=== PATIENT | female | born 1985 | race African-American/Black ===

== ENCOUNTER 2017-04-12 14:13 | Emergency (ER) | payer BC ==
[2017-04-12 14:18] VITALS: BP 149/91
[2017-04-12] MEDS ORDERED: IBUPROFEN 800 MG TABLET PO ONE (14:48)
--- NOTE | 2017-04-12 14:53 | ER Document Report ---
ED Flu Like - General Chief Complaint: Flu Symptoms Stated Complaint: BODY ACHES Time Seen by Provider: 04/12/17 14:47 Notes: Patient is a 32-year-old female presented emergency department complaining of body aches, headache mild sore throat runny nose. She states everything started last evening. She is taking DayQuil this morning. She denies any vision changes, chest pain, shortness of breath, difficulty breathing, difficulty swallowing. States she did not receive a flu vaccine this year. TRAVEL OUTSIDE OF THE [place] IN LAST 30 DAYS: No - Related Data Allergies/Adverse Reactions: No Known Allergies Allergy (Verified 04/12/17 14:16) Past Medical History - Social History Smoking Status: Never Smoker Chew tobacco use (# tins/day): No Frequency of alcohol use: None Drug Abuse: None Family History: Reviewed & Not Pertinent - Past Medical History Cardiac Medical History: Reports: Hx Hypertension Endocrine Medical History: Reports: Hx Diabetes Mellitus Type 2 Renal/ Medical History: Denies: Hx Peritoneal Dialysis Surgical Hx: Negative - Immunizations Hx Diphtheria, Pertussis, Tetanus Vaccination: No Review of Systems - Review of Systems Constitutional: See HPI EENT: See HPI Cardiovascular: No symptoms reported Respiratory: No symptoms reported Gastrointestinal: No symptoms reported -: Yes All other systems reviewed and negative Physical Exam - Vital signs Vitals: Temp Pulse Resp BP Pulse Ox 101.3 F H 86 20 149/91 H 97 04/12/17 14:17 04/12/17 14:17 04/12/17 14:17 04/12/17 14:17 04/12/17 14:17 - Notes Notes: PHYSICAL EXAM GENERAL: Alert, interacts well. HEAD: Normocephalic, atraumatic. EYES: Pupils equal, round, and reactive to light. Extraocular movements intact. ENT: Oral mucosa moist, tongue midline. Uvula midline. Airway patent. No evidence of tonsillar enlargement, peritonsillar abscess, retropharyngeal abscess. NECK: Full range of motion. Supple. Trachea midline. LUNGS: Clear to auscultation bilaterally, no wheezes, rales, or rhonchi. No respiratory distress. HEART: Regular rate and rhythm. No murmurs, gallops, or rubs. ABDOMEN: Soft, nondistended, nontender. No guarding, rebound, or rigidity.. Bowel sounds present in all 4 quadrants. EXTREMITIES: Moves all 4 extremities spontaneously. No edema, radial and dorsalis pedis pulses 2/4 bilaterally. No cyanosis. NEUROLOGICAL: Alert and oriented x4. Normal speech. PSYCH: Normal affect, normal mood. SKIN: Warm, dry, normal turgor. No rashes or lesions noted. Course - Re-evaluation Re-evalutation: 04/12/17 14:52 Patient is a 32-year-old female is hemodynamically stable, no acute distress with a temperature of 101.3. Offered patient Motrin which she accepted will swab for strep and influenza 04/12/17 15:59 Patient results came back negative for strep and flu. Patient educated on symptomatic management of her symptoms with [id number] medications, fluid and rest. Patient agrees with plan. Discussed strict return precautions patient agrees with plan. - Vital Signs Vital signs: Temp Pulse Resp BP Pulse Ox 101.1 F H 86 20 149/91 H 97 04/12/17 14:48 04/12/17 14:17 04/12/17 14:17 04/12/17 14:17 04/12/17 14:17 Discharge - Discharge Clinical Impression: Body aches Condition: Good Disposition: HOME, SELF-CARE Instructions: Acetaminophen, Use of [id number] Ibuprofen ([facility]), Viral Syndrome ([facility]) Additional Instructions: Be sure to be drinking plenty of fluids to stay hydrated please return to the emergency department with any fever of 104 not responding to Tylenol or Motrin, nausea, vomiting Forms: Return to Work
== END 2017-04-12 16:06 | disposition home or self-care (01) ==
LOC: ER 14:13
DX: M79.1 Myalgia (principal)
CPT/HCPCS: 87070; 87804; 87880; 99283

== ENCOUNTER 2017-08-29 23:02 | Emergency (ER) | payer BC ==
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
[2017-08-30] MEDS ORDERED: KETOROLAC TROMETHAMINE INJ/PF 30 MG/1 ML SDV IM ONE (00:21)
--- NOTE | 2017-08-30 01:00 | RADIOLOGY REPORT (SQ) ---
EXAM DESCRIPTION: CHEST SINGLE VIEW CLINICAL HISTORY: chest pain COMPARISON: 05/03/2016 FINDINGS: Single frontal view of the chest. The cardiomediastinal silhouette has normal size and contour. No consolidation, pneumothorax, or pleural effusion. No displaced rib fractures identified. Upper abdominal soft tissues are unremarkable. IMPRESSION: 1. No acute pulmonary process identified.
[2017-08-30 01:19] LABS: HEMATOCRIT 25.4 % (36.0-47.0); MEAN CORPUSCULAR HEMOGLOBIN 16.3 pg (27.0-33.4); MEAN CORPUSCULAR HGB CONC 29.1 g/dL (32.0-36.0); PLATELET COUNT 372 10^3/uL (150-450); RED BLOOD COUNT 4.52 10^6/uL (3.72-5.28); RED CELL DISTRIBUTION WIDTH 20.4 % (11.5-14.0); WHITE BLOOD COUNT 9.5 10^3/uL (4.0-10.5)
[2017-08-30 01:25] LABS: MEAN CORPUSCULAR VOLUME 56 fl (80-97)
[2017-08-30 01:33] LABS: ANION GAP 11 (5-19); BLOOD UREA NITROGEN 15 mg/dL (7-20); CALCIUM 9.3 mg/dL (8.4-10.2); CARBON DIOXIDE 23 mmol/L (22-30); CHLORIDE 106 mmol/L (98-107); GLUCOSE 84 mg/dL (75-110); POTASSIUM 4.1 mmol/L (3.6-5.0); SODIUM 140.2 mmol/L (137-145)
[2017-08-30 01:36] LABS: ABSOLUTE LYMPHOCYTES# (MANUAL) 2.7 10^3/uL (0.5-4.7); ABSOLUTE MONOCYTES # (MANUAL) 0.7 10^3/uL (0.1-1.4); ABSOLUTE NEUTROPHILS# (MANUAL) 6.1 10^3/uL (1.7-8.2); BASOPHILS % (MANUAL) 0 % (0-2); EOSINOPHILS % (MANUAL) 1 % (0-6); LYMPHOCYTES % (MANUAL) 26 % (13-45); MONOCYTES % (MANUAL) 7 % (3-13); SEGMENTED NEUTROPHILS % (MAN) 64 % (42-78); TOTAL CELLS COUNTED 100; TOXIC GRANULATION SLIGHT; TOXIC VACUOLATION PRESENT
[2017-08-30 01:38] LABS: HYPOCHROMASIA 4+
[2017-08-30 01:39] LABS: ACANTHOCYTES 1+; ANISOCYTOSIS 2+; OVALOCYTES 1+; PLATELET COMMENT ADEQUATE; POIKILOCYTOSIS 2+; STOMATOCYTES 1+
[2017-08-30 01:42] LABS: HEMOGLOBIN 7.4 g/dL (12.0-15.5)
[2017-08-30] MEDS ORDERED: NORMAL SALINE 250 ML IV PRN (01:57)
[2017-08-30 07:08] VITALS: BP 145/94
--- NOTE | 2017-08-30 09:00 | EKG REPORT ---
SEVERITY:- NORMAL ECG - SINUS RHYTHM : Confirmed by: Ad Jacobo MD 30-Aug-2017 08:59:34
== END 2017-08-30 07:11 | disposition home or self-care (01) ==
LOC: ER 23:02
DX: R07.9 Chest pain, unspecified (principal); D64.9 Anemia, unspecified; R05 Cough
CPT/HCPCS: 93005; 99285; 96372; 86900; 86901; 36415; 36430; 86850; 85025; 80048; 84484; 86920; 71045; 93010; P9016; J1885; J7050

== ENCOUNTER 2018-04-24 14:43 | Emergency (ER) | payer BC ==
--- NOTE | 2018-04-24 15:43 | ER Document Report ---
HPI - HPI Patient complains to provider of: cough, chest hurts with cough Onset: Other Onset/Duration: Persistent Severity: Severe Pain Level: 4 Context: She presents to the emergency department with complaints of cough chest hurts from coughing feeling like she is having a hard time breathing and weak. Patient first reports that she has had a cough for 2 days. After discussing with her reports she has had a cough for a while and has been evaluated by her primary care provider Dr. Mays, she was also instructed at that time that it was her allergies and is to take some allergy medicine. She reports this is not helping. Denies fever vomiting diarrhea. Reports she is coughing up mucus. Associated Symptoms: Productive cough Exacerbated by: Coughing Relieved by: Denies Similar symptoms previously: Yes Recently seen / treated by doctor: Yes - REPRODUCTIVE Reproductive: DENIES: : Past Medical History - General Information source: Patient - Social History Smoking Status: Unknown if Ever Smoked Cigarette use (# per day): No Frequency of alcohol use: Occasional Drug Abuse: None Occupation: [employer] Lives with: Friend Family History: Reviewed & Not Pertinent Patient has suicidal ideation: No Patient has homicidal ideation: No - Past Medical History Cardiac Medical History: Reports: Hx Hypertension Endocrine Medical History: Reports: Hx Diabetes Mellitus Type 2 Renal/ Medical History: Denies: Hx Peritoneal Dialysis Surgical Hx: Negative - Immunizations Hx Diphtheria, Pertussis, Tetanus Vaccination: No Vertical Provider Document - CONSTITUTIONAL Agree With Documented VS: Yes Exam Limitations: No Limitations General Appearance: WD/WN, No Apparent Distress - INFECTION CONTROL TRAVEL OUTSIDE OF THE [place] IN LAST 30 DAYS: No - HEENT HEENT: Atraumatic, Normocephalic. negative: Conjuctival Injection, Pharyngeal Exudate, Pharyngeal Erythema, Tympanic Membrane Red - NECK Neck: Normal Inspection, Supple. negative: Lymphadenopathy-Left, Lymphadenopathy-Right - RESPIRATORY Respiratory: Breath Sounds Normal, No Respiratory Distress - no cough noted during entire assessment and interview. negative: Rales, Rhonchi, Wheezing - CARDIOVASCULAR Cardiovascular: Regular Rate, Regular Rhythm - MUSCULOSKELETAL/EXTREMETIES Musculoskeletal/Extremeties: MAEW, FROM, Non-Tender - no c/o pain - NEURO Level of Consciousness: Awake, Alert, Appropriate - DERM Integumentary: Warm, Dry Course - Re-evaluation Re-evalutation: 04/24/18 15:47 O2 sat 97%. Patient is talking in clear voice no respiratory distress no shortness of breath noted. Patient walked from waiting room to the exam room without any problems. Chest x-ray negative for hernia. Patient will be prescribed Tessalon Perles to help her sleep for cough disturbance. She was also instructed on importance of pushing fluids and follow-up with her primary care within 1 week for recheck. Dictation of this chart was performed using voice recognition software; therefore, there may be some unintended grammatical errors. - Vital Signs Vital signs: Temp Pulse Resp BP Pulse Ox 98.4 F 67 18 145/110 H 97 04/24/18 14:51 04/24/18 14:51 04/24/18 14:51 04/24/18 14:51 04/24/18 14:51 - Diagnostic Test Radiology reviewed: Image reviewed, Reports reviewed - EXAM DESCRIPTION: CHEST 2 VIEWS COMPLETED DATE/TIME: 04/24/2018 3:37 pm REASON FOR STUDY: chest congestion COMPARISON: 05/03/2016 EXAM PARAMETERS: NUMBER OF VIEWS: two views TECHNIQUE: Digital Frontal and Lateral radiographic views of the chest acquired. RADIATION DOSE: NA LIMITATIONS: none FINDINGS: LUNGS AND PLEURA: No opacities, masses or pneumothorax. No pleural effusion. MEDIASTINUM AND HILAR STRUCTURES: No masses or contour abnormalities. HEART AND VASCULAR STRUCTURES: Stable heart size. No evidence for failure. BONES: No acute findings. HARDWARE: None in the chest. OTHER: No other significant finding. IMPRESSION: NO ACUTE RADIOGRAPHIC FINDING IN THE CHEST Discharge - Discharge Clinical Impression: Cough Condition: Stable Disposition: HOME, SELF-CARE Instructions: Tessalon Shefali ([facility]) Additional Instructions: *You have been evaluated for cough *Increase fluid intake as discussed *Take medication as prescribed for cough *Monitor your temperature, take Tylenol as indicated *Follow up with Dr Mays within one week for recheck *Return to the Emergency Department for worsening condition, changes, concerns. Monitor your blood pressure. Your blood pressure was elevated today. This may be because you were anxious, in pain or because you need medication. It is important to follow up with your primary care provider for full evaluation. Prescriptions: Benzonatate [Tessalon Perles 100 mg Capsule] 100 mg PO ASDIR PRN #30 capsule PRN Reason: Forms: Elevated Blood Pressure, Return to Work Referrals: ADRIAN MAYS MD [Primary Care Provider] - Follow up as needed
--- NOTE | 2018-04-24 15:46 | RADIOLOGY REPORT (SQ) ---
EXAM DESCRIPTION: CHEST 2 VIEWS COMPLETED DATE/TIME: 04/24/2018 3:37 pm REASON FOR STUDY: chest congestion COMPARISON: 05/03/2016 EXAM PARAMETERS: NUMBER OF VIEWS: two views TECHNIQUE: Digital Frontal and Lateral radiographic views of the chest acquired. RADIATION DOSE: NA LIMITATIONS: none FINDINGS: LUNGS AND PLEURA: No opacities, masses or pneumothorax. No pleural effusion. MEDIASTINUM AND HILAR STRUCTURES: No masses or contour abnormalities. HEART AND VASCULAR STRUCTURES: Stable heart size. No evidence for failure. BONES: No acute findings. HARDWARE: None in the chest. OTHER: No other significant finding. IMPRESSION: NO ACUTE RADIOGRAPHIC FINDING IN THE CHEST. TECHNICAL DOCUMENTATION: JOB ID: [id number] [employer]- All Rights Reserved Reading location - IP/workstation name: [email or web address]
[2018-04-24 16:02] VITALS: BP 145/96
== END 2018-04-24 16:02 | disposition home or self-care (01) ==
LOC: ER 14:43
DX: R05 Cough (principal); R07.89 Other chest pain; I10 Essential (primary) hypertension; E11.9 Type 2 diabetes mellitus without complications
CPT/HCPCS: 71046; 99283

== ENCOUNTER 2018-12-11 15:41 | Emergency (ER) | payer OTHER, BC ==
[2018-12-11 15:49] VITALS: BP 152/90
[2018-12-11] MEDS ORDERED: KETOROLAC TROMETHAMINE 60 MG/2 ML SDV IM ONE (16:02)
[2018-12-11] MEDS ORDERED: LIDOCAINE 5% (700 MG) TRANSDERMAL ADH..PATCH TP ONE (16:02)
[2018-12-11] MEDS ORDERED: ACETAMINOPHEN 325 MG TABLET PO ONE (16:02)
--- NOTE | 2018-12-11 16:09 | ER Document Report ---
HPI - HPI Patient complains to provider of: back pain Time Seen by Provider: 12/11/18 15:56 Pain Level: 5 Context: Overall healthy 33-year-old female with hypertension presents to the emergency department with chief complaint of thoracic back pain since yesterday. She was lifting a heavy tray at work and twisting and she felt a tweak. She said it got worse throughout the day and bad overnight to the point that she cannot sleep. She did not go to work today because the pain was so severe and she is more comfortable standing than sitting. She states that the pain is at approximately the level of T12-L1 on the right side and it radiates pain with coughing pain with sneezing, and pain with deep inspiration. She denies any fevers or chills, denies any numbness or paresthesias in any of your extremities, urinary retention, bowel incontinence, no other complaints. - REPRODUCTIVE Reproductive: DENIES: : Past Medical History - Social History Smoking Status: Unknown if Ever Smoked Family History: Reviewed & Not Pertinent - Past Medical History Cardiac Medical History: Reports: Hx Hypertension Endocrine Medical History: Reports: Hx Diabetes Mellitus Type 2 Renal/ Medical History: Denies: Hx Peritoneal Dialysis - Immunizations Hx Diphtheria, Pertussis, Tetanus Vaccination: No Vertical Provider Document - CONSTITUTIONAL Notes: PHYSICAL EXAMINATION: Reviewed vital signs and charting by RN GENERAL: Alert, interacts well. No acute distress. HEAD: Normocephalic, atraumatic. EYES: Pupils equal and round. Extraocular movements intact. ENT: Oral mucosa moist, tongue midline. NECK: Full range of motion. Trachea midline. BACK: Tenderness to palpation over the right paraspinal muscles at the level of T12-L1 with reproducible radiculopathy that wraps around her flank and side into her abdomen EXTREMITIES: Moves all 4 extremities spontaneously. No edema, No cyanosis. PSYCH: Normal affect, normal mood. SKIN: Warm, dry, normal turgor. No rashes or lesions noted. - INFECTION CONTROL TRAVEL OUTSIDE OF THE [place] IN LAST 30 DAYS: No Course - Re-evaluation Re-evalutation: 12/11/18 16:08 Overall well-appearing, in mild distress standing where she is more comfortable. Symptoms most consistent with a muscle strain causing inflammation and mild impingement on the nerve root on the right T12/L1 nerve root. No red flags. We will provide her with a Lidoderm patch, Tylenol, Toradol 30 mg IM once, and a prescription for Flexeril. At this time patient is stable for discharge. Vitals within normal limits. - Vital Signs Vital signs: Temp Pulse Resp BP Pulse Ox 98.4 F 86 18 152/90 H 86 L 12/11/18 15:48 12/11/18 15:48 12/11/18 15:48 12/11/18 15:48 12/11/18 15:48 Discharge - Discharge Clinical Impression: Low back pain Qualifiers: Chronicity: acute Back pain laterality: right Sciatica presence: without sciatica Qualified Code(s): M54.5 - Low back pain Condition: Good Disposition: HOME, SELF-CARE Instructions: Ice Packs ([facility]), Pain Medication Injection ([facility]), Warm Packs ([facility]) Additional Instructions: You have been seen in the Emergency Department (ED) today for back pain. Your workup and exam have not shown any acute abnormalities and you are likely suffering from muscle strain or possible problems with your discs, but there is no treatment that will fix your symptoms at this time. Please take Motrin 600 mg every 6 hours and/or Tylenol every 6 hours for pain/inflammation. You should also purchase a local lidocaine cream such as "aspercreme with lidocaine" and use per bottle instructions to the affected area. Apply heat to the area as often as you are able. Continue to keep active and avoid prolonged periods of bed rest. Please follow up with your doctor as soon as possible regarding today's ED visit and your back pain. Return to the ED for worsening back pain, fever, weakness or numbness of either leg, or if you develop either (1) an inability to urinate or have bowel movements, or (2) loss of your ability to control your bathroom functions (if you start having "accidents"), or if you develop other new symptoms that concern you.concern you. Prescriptions: Cyclobenzaprine HCl [Flexeril 5 mg Tablet] 1 - 2 tab PO TID PRN #15 tablet PRN Reason: Forms: Return to Work Referrals: ADRIAN MAYS MD [Primary Care Provider] - Follow up as needed
== END 2018-12-11 16:28 | disposition home or self-care (01) ==
LOC: ER 15:41
DX: M54.5 Low back pain (principal); I10 Essential (primary) hypertension; E11.9 Type 2 diabetes mellitus without complications
CPT/HCPCS: 99283; 96372; J1885